=== PATIENT | male | born 1950 | race African-American/Black ===

== ENCOUNTER 2018-03-15 07:35 | Outpatient (CLI) | payer OTHER ==
--- NOTE | 2018-03-15 10:20 | RAD ---
RADIOGRAPH CHEST 2 VIEWS: HISTORY: 67-year-old male with emphysema, J98.3. FINDINGS: There is no air space density, pulmonary edema, pleural effusion, pneumothorax, or cardiomegaly. IMPRESSION: No acute cardiopulmonary findings. nik POS: CHARLY
--- NOTE | 2018-03-15 11:52 | RAD ---
LUMBAR SPINE SERIES TWO VIEWS: HISTORY: Back pain. FINDINGS: The vertebral bodies are normal in height. There are degenerative osteophytic changes along the cour se of the spine. There is disk narrowing at L3-L4 and L4-L5. Minimal spondylolisthesis of L4 on L5 is noted with degenerative facet changes present. Pedicles are intact. IMPRESSION: Moderate arthritic change of the spine. POS: ZAIRA
== END 2018-03-15 07:36 | disposition home or self-care (01) ==
LOC: CP 07:35 → RAD 07:36
PROVIDERS: ATTEND Orthopaedic Surgery
DX: J43.9 Emphysema, unspecified (principal); M46.96 Unspecified inflammatory spondylopathy, lumbar region
CPT/HCPCS: 71046; 72100; 94060; 94727; 94729